=== PATIENT | female | born 1990 | race Two or more races ===

== ENCOUNTER → 2017-05-11 | Outpatient (REF) | payer OTHER | LOC: M SFHCLERA 12:46 | PROVIDERS: ATTEND Physician Assistant | DX: N76.0 Acute vaginitis (principal) ==

== ENCOUNTER → 2017-05-19 | Outpatient (REF) | payer OTHER | LOC: M SFHCLERA 17:02 | PROVIDERS: ATTEND Nurse Practitioner Family | DX: Z86.19 Personal history of other infectious and parasitic diseases (principal) ==

== ENCOUNTER 2017-10-29 21:10 | Emergency (ER) | payer OTHER ==
[2017-10-30] MEDS: diphenhydrAMINE INJ 50MG/ML VIAL (J1200) IV (00:11)
[2017-10-30] MEDS: METOCLOPRAMIDE INJ 10MG/2ML VIAL (J2765) IV (00:11)
[2017-10-30] MEDS: NS 1,000 ML IV (00:11)
[2017-10-30 00:16] LABS: BASO % 0.2 % (0.0-1.0); EOS % 0.2 % (0.0-3.0); HEMATOCRIT 38.7 % (36.0-47.0); HEMOGLOBIN 12.8 g/dl (12.0-16.0); IMMATURE GRANULOCYTE % 0.4 % (0-0); LYMPH # 1.9 10^3/uL (1.5-6.5); LYMPH % 19.4 % (24.0-44.0); MEAN CORPUSCULAR HEMOGLOBIN 27.6 pg (27.0-33.0); MEAN CORPUSCULAR HGB CONC 33.1 g/dl (32.0-36.5); MEAN CORPUSCULAR VOLUME 83.4 fl (80.0-96.0); MONO # 0.5 10^3/uL (0.0-0.8); MONO % 4.8 % (0.0-5.0); NEUTROPHILS # 7.5 10^3/uL (1.8-7.7); PLATELET COUNT, AUTOMATED 312 10^3/uL (150-450); RED BLOOD COUNT 4.64 10^6/uL (4.00-5.40); RED CELL DISTRIBUTION WIDTH 13.8 % (11.5-14.5)
[2017-10-30 00:56] LABS: ALBUMIN 3.7 GM/DL (3.2-5.2); ALBUMIN/GLOBULIN RATIO 0.86 (1.00-1.93); ALKALINE PHOSPHATASE 105 U/L (45-117); ALT/SGPT 15 U/L (12-78); ANION GAP 9 MEQ/L (8-16); AST/SGOT 9 U/L (7-37); BILIRUBIN,DIRECT 0.1 MG/DL (0.0-0.2); BILIRUBIN,TOTAL 0.4 MG/DL (0.2-1.0); BLOOD UREA NITROGEN 8 MG/DL (7-18); CALCIUM LEVEL 9.1 MG/DL (8.5-10.1); CARBON DIOXIDE LEVEL 25 MEQ/L (21-32); CHLORIDE LEVEL 104 MEQ/L (98-107); CREATININE FOR GFR 0.61 MG/DL (0.55-1.02); GLOMERULAR FILTRATION RATE > 60.0 (>60); GLUCOSE, FASTING 85 MG/DL (70-105); HCG, SERUM QUANTITATIVE 59613 MIU/ML; LIPASE 59 U/L (73-393); POTASSIUM SERUM 3.8 MEQ/L (3.5-5.1); SODIUM LEVEL 138 MEQ/L (136-145)
[2017-10-30 01:24] LABS: KETONE, URINE AUTO RFX 2+ mg/dL (NEGATIVE); LEUKOCYTE ESTERASE UR AUTO RFX 3+ (NEGATIVE); MUCUS, URINE RFX SMALL (NEGATIVE); NITRITE, URINE AUTO RFX NEGATIVE (NEGATIVE); RBC, URINE AUTO RFX 5 /HPF (0-3); SPECIFIC GRAVITY UR AUTO RFX 1.027 (1.002-1.035); SQUAM EPITHELIAL CELL UR AURFX 3 /HPF (0-6); WBC, URINE AUTO RFX 7 /HPF (0-3)
[2017-10-30] MEDS: NITROFURANTOIN (MACROBID) 100 MG CAP PO (01:34)
== END 2017-10-30 01:43 | disposition home or self-care (01) ==
LOC: M ED 10-30 01:43
DX: O21.9 Vomiting of pregnancy, unspecified (principal); Z3A.08 8 weeks gestation of pregnancy; O99.331 Smoking (tobacco) complicating pregnancy, first trimester; F17.210 Nicotine dependence, cigarettes, uncomplicated
CPT/HCPCS: J1200

== ENCOUNTER → 2018-04-07 | Outpatient (CLI) | payer MEDICAID ==
[2018-04-07 09:20] LABS: BASO % 0.2 % (0.0-1.0); EOS # 0.2 10^3/uL (0.0-0.50); EOS % 2.2 % (0.0-3.0); HEMOGLOBIN 11.2 g/dl (12.0-15.5); IMMATURE GRANULOCYTE % 0.4 % (0-3.0); LYMPH # 1.6 10^3/uL (1.5-6.5); LYMPH % 17.3 % (24.0-44.0); MEAN CORPUSCULAR HEMOGLOBIN 27.4 pg (27.0-33.0); MEAN CORPUSCULAR HGB CONC 32.9 g/dl (32.0-36.5); MEAN CORPUSCULAR VOLUME 83.1 fl (80.0-96.0); MONO # 0.5 10^3/uL (0.0-0.8); MONO % 5.2 % (0.0-5.0); NEUTROPHILS # 6.9 10^3/uL (1.8-7.7); NEUTROPHILS % 74.7 % (36.0-66.0); PLATELET COUNT, AUTOMATED 276 10^3/uL (150-450); RED BLOOD COUNT 4.09 10^6/uL (4.00-5.40); RED CELL DISTRIBUTION WIDTH 14.4 % (11.5-14.5); WHITE BLOOD COUNT 9.2 10^3/uL (4.0-10.0)
[2018-04-07 10:05] LABS: GLUCOSE, FASTING 95 MG/DL (LESS THAN 95)
[2018-04-07 10:50] LABS: 1 HR GLUCOSE 193 MG/DL (LESS THAN 180)
[2018-04-07 10:51] LABS: HIV 1&2 SCREEN CENTAUR NEGATIVE (NEGATIVE)
[2018-04-07 11:30] LABS: 2 HR GLUCOSE 161 MG/DL (LESS THAN 155)
[2018-04-07 11:55] LABS: 3 HR GLUCOSE 142 MG/DL (LESS THAN 140)
[2018-04-07 13:05] LABS: CHLAMYDIA DNA AMPLIFICATION NEGATIVE (NEGATIVE); GC DNA AMPLIFICATION NEGATIVE (NEGATIVE)
== END ==
LOC: M LAB 08:05
DX: Z34.83 Encounter for supervision of other normal pregnancy, third trimester (principal)
CPT/HCPCS: 82951

== ENCOUNTER → 2018-05-14 | Outpatient (REF) | payer MEDICAID | LOC: M LAB REF 12:53 | DX: Z34.83 Encounter for supervision of other normal pregnancy, third trimester (principal); Z3A.00 Weeks of gestation of pregnancy not specified ==

== ENCOUNTER 2018-06-02 06:09 | Inpatient (IN) | payer OTHER, MEDICAID ==
[2018-06-02] MEDS: LACTATED RINGER'S 1000 ML IV ×2 (07:47→11:57)
[2018-06-02 08:05] LABS: HEMATOCRIT 34.5 % (36.0-47.0); HEMOGLOBIN 11.1 g/dl (12.0-15.5); MEAN CORPUSCULAR HEMOGLOBIN 26.6 pg (27.0-33.0); MEAN CORPUSCULAR HGB CONC 32.2 g/dl (32.0-36.5); MEAN CORPUSCULAR VOLUME 82.5 fl (80.0-96.0); PLATELET COUNT, AUTOMATED 199 10^3/uL (150-450); RED BLOOD COUNT 4.18 10^6/uL (4.00-5.40); RED CELL DISTRIBUTION WIDTH 15.3 % (11.5-14.5); WHITE BLOOD COUNT 10.3 10^3/uL (4.0-10.0)
[2018-06-02] MEDS ORDERED: FENTANYL 2MCG/ML ROPIVACAINE 0.2% IN 0.9% NACL 200ML IVBAG As Ordered (08:06)
[2018-06-02] MEDS: PENICILLIN G POTASSIUM IV 5 MU in D5W MINI-BAG PLUS 100 ML IV (08:10)
[2018-06-02] MEDS: LR 1,000 ML IV ×3 (08:10→13:09)
[2018-06-02] MEDS: OXYTOCIN DRIP 30 UNITS in APPROPRIATE DILUENT 1 EA IV ×2 (10:06→19:00)
[2018-06-02] MEDS ORDERED: NALOXONE INJ 0.4 MG/1 ML VIAL (J2310) IV (10:15)
[2018-06-02] MEDS ORDERED: EPIDURAL COMMENT XX (10:15)
[2018-06-02] MEDS ORDERED: EPIDURAL/PCA KEYS XX (10:15)
[2018-06-02] MEDS ORDERED: REFRIGERATOR IV KEYS XX (10:15)
[2018-06-02] MEDS ORDERED: FENTANYL/ROPIVACAINE/NACL BAG 200 ML EPIDURAL (10:15)
[2018-06-02] MEDS ORDERED: diphenhydrAMINE INJ 50MG/ML VIAL (J1200) IV (10:15)
[2018-06-02] MEDS ORDERED: ONDANSETRON 4MG/2ML VIAL (J2405) IV ×2 (10:15→15:30)
[2018-06-02] MEDS: ePHEDrine SULFATE 25 MG/5 ML(5MG/ML) SYRINGE IV ×3 (11:54→12:06)
[2018-06-02] MEDS: PENICILLIN G POTASSIUM IV 2.5 MU in APPROPRIATE DILUENT 1 EA IV (12:36)
[2018-06-02] MEDS ORDERED: DIBUCAINE 1% OINTMENT 30GM TOP (15:30)
[2018-06-02] MEDS ORDERED: MEASLES,MUMPS,RUBELLA VACCINE INJ (MMR-II) (90707) SC (15:30)
[2018-06-02] MEDS ORDERED: RHOGAM 300 MCG (1500 IU) INJ (J2790) IM (15:30)
[2018-06-02] MEDS ORDERED: DOCUSATE SODIUM 100 MG CAP PO (15:30)
[2018-06-02] MEDS ORDERED: PROMETHAZINE 25 MG TAB PO (15:30)
[2018-06-02] MEDS ORDERED: LR 1,000 ML IV (15:30)
[2018-06-02] MEDS: IBUPROFEN 800 MG TAB PO (20:33)
[2018-06-03] MEDS: PRENATAL VITAMINS CHEWABLE TABLET PO (09:26)
[2018-06-03] MEDS: IBUPROFEN 800 MG TAB PO (09:30)
[2018-06-03] MEDS: ACETAMINOPHEN 500 MG TAB PO (20:49)
[2018-06-04] MEDS: IBUPROFEN 800 MG TAB PO ×2 (01:02→08:21)
[2018-06-04] MEDS: PRENATAL VITAMINS CHEWABLE TABLET PO (08:21)
== END 2018-06-04 11:45 | disposition home or self-care (01) | DRG 775 ==
LOC: M LDI 06:09 → M OBS 17:47
PROVIDERS: Obstetrics & Gynecology
PROC: 10E0XZZ Delivery of Products of Conception, External Approach (ICD-10-PCS; principal; 2018-06-02)
PROC: 0HQ9XZZ Repair Perineum Skin, External Approach (ICD-10-PCS; 2018-06-02)
DX: O24.429 Gestational diabetes mellitus in childbirth, unspecified control (principal); Z37.0 Single live birth; Z3A.39 39 weeks gestation of pregnancy; O99.824 Streptococcus B carrier state complicating childbirth; Z72.0 Tobacco use; Z91.013 Allergy to seafood; O70.0 First degree perineal laceration during delivery

== ENCOUNTER → 2018-07-26 | Outpatient (REF) | payer OTHER, MEDICAID ==
[2018-07-26 13:03] LABS: AMPHETAMINES URINE REFLEX NEGATIVE (NEGATIVE); BARBITURATES URINE REFLEX NEGATIVE (NEGATIVE); BENZODIAZEPINES URINE REFLEX NEGATIVE (NEGATIVE); CANNABINOIDS URINE REFLEX NEGATIVE (NEGATIVE); COCAINE METABOLITE URINE REFLE NEGATIVE (NEGATIVE); METHADONE URINE REFLEX NEGATIVE (NEGATIVE); OPIATES URINE REFLEX NEGATIVE (NEGATIVE); PHENCYCLIDINE URINE REFLEX NEGATIVE (NEGATIVE)
== END ==
LOC: M LAB REF 11:20
DX: Z00.00 Encounter for general adult medical examination without abnormal findings (principal)
CPT/HCPCS: 80307

== ENCOUNTER 2018-09-26 00:58 | Emergency (ER) | payer MEDICAID, OTHER ==
[2018-09-26 01:53] LABS: BASO % 0.4 % (0.0-1.0); EOS # 0.4 10^3/uL (0.0-0.50); HEMATOCRIT 37.2 % (36.0-47.0); IMMATURE GRANULOCYTE % 0.1 % (0-3.0); MEAN CORPUSCULAR HEMOGLOBIN 26.3 pg (27.0-33.0); MEAN CORPUSCULAR HGB CONC 32.3 g/dl (32.0-36.5); MEAN CORPUSCULAR VOLUME 81.4 fl (80.0-96.0); MONO # 0.6 10^3/uL (0.0-0.8); MONO % 7.4 % (0.0-5.0); NEUTROPHILS # 4.2 10^3/uL (1.8-7.7); NEUTROPHILS % 51.1 % (36.0-66.0); RED BLOOD COUNT 4.57 10^6/uL (4.00-5.40); RED CELL DISTRIBUTION WIDTH 14.1 % (11.5-14.5); WHITE BLOOD COUNT 8.3 10^3/uL (4.0-10.0)
[2018-09-26 01:57] LABS: KETONE, URINE AUTO RFX NEGATIVE (NEGATIVE); LEUKOCYTE ESTERASE UR AUTO RFX NEGATIVE (NEGATIVE); NITRITE, URINE AUTO RFX NEGATIVE (NEGATIVE); RBC, URINE AUTO RFX 0 /HPF (0-3); SPECIFIC GRAVITY UR AUTO RFX 1.018 (1.002-1.035); SQUAM EPITHELIAL CELL UR AURFX 0 /HPF (0-6); WBC, URINE AUTO RFX 0 /HPF (0-3)
[2018-09-26] MEDS: KETOROLAC 30 MG/ML VIAL (J1885) IV (02:00)
[2018-09-26 02:04] LABS: POS COUNT POS FLAG
[2018-09-26 02:23] LABS: ALBUMIN 3.1 GM/DL (3.2-5.2); ALBUMIN/GLOBULIN RATIO 0.72 (1.00-1.93); ALKALINE PHOSPHATASE 123 U/L (45-117); ALT/SGPT 26 U/L (12-78); ANION GAP 9 MEQ/L (8-16); AST/SGOT 20 U/L (7-37); BILIRUBIN,DIRECT < 0.1 MG/DL (0.0-0.2); BILIRUBIN,TOTAL 0.2 MG/DL (0.2-1.0); BLOOD UREA NITROGEN 14 MG/DL (7-18); CALCIUM LEVEL 8.9 MG/DL (8.5-10.1); CARBON DIOXIDE LEVEL 27 MEQ/L (21-32); CHLORIDE LEVEL 105 MEQ/L (98-107); CREATININE FOR GFR 0.65 MG/DL (0.55-1.30); GLOMERULAR FILTRATION RATE > 60.0 (>60); GLUCOSE, FASTING 106 MG/DL (70-100); LIPASE 91 U/L (73-393); POTASSIUM SERUM 4.8 MEQ/L (3.5-5.1); SODIUM LEVEL 141 MEQ/L (136-145); TOTAL PROTEIN 7.4 GM/DL (6.4-8.2)
[2018-09-26] MEDS: AZITHROMYCIN 250 MG TAB PO (04:24)
[2018-09-26] MEDS: cefTRIAXone SOD 1 GM in D5W MINI-BAG PLUS 50 ML IV (04:24)
== END 2018-09-26 05:46 | disposition home or self-care (01) ==
LOC: M ED 00:58
DX: J18.9 Pneumonia, unspecified organism (principal); Z77.098 Contact with and (suspected) exposure to other hazardous, chiefly nonmedicinal, chemicals
CPT/HCPCS: J0696

== ENCOUNTER → 2019-03-04 | Outpatient (REF) | payer MEDICAID ==
[~2019-03-04] MED LIST: ACET500T15 PO; AZIT-12 PO; COLA100C5 PO; MACR100C43 PO; MOTR200T44 PO; PRENTAB9 PO; REGL10TA6 PO
[2019-03-09 14:10] LABS: HPV HYBRID CAPTURE II Negative (Negative)
== END ==
LOC: M LAB REF 17:47
PROVIDERS: ATTEND Obstetrics & Gynecology
DX: Z12.4 Encounter for screening for malignant neoplasm of cervix (principal)

== ENCOUNTER → 2020-03-21 | Outpatient (CLI) | payer MEDICAID ==
--- NOTE | 2020-03-21 15:11 | REP ---
OB ULTRASOUND: Real-time sonographic evaluation of the gravid uterus performed. There is a single living intrauterine gestation with an estimated gestational age of 13 weeks based on a crown-rump length of 6 to 7 mm, EDC 09/26/2020. heart rate 160 beats per minute. Cervix is closed and measures 3.6 cm in length. There is no subchorionic hemorrhage. Cystic structure of the right ovary probably represents a corpus luteum. It measures les than 1 cm in diameter. Left ovary is unremarkable.
== END ==
LOC: M WHC 11:44
PROVIDERS: ATTEND Advanced Practice Midwife
DX: Z36.89 Encounter for other specified antenatal screening (principal); Z3A.13 13 weeks gestation of pregnancy

== ENCOUNTER → 2020-04-11 | Outpatient (CLI) | payer MEDICAID ==
[~2020-04-11] MED LIST changes: +ACET325C5 PO; +OMEP10CASR PO
[2020-04-11 09:47] LABS: HEMOGLOBIN 11.6 g/dl (12.0-15.5); MEAN CORPUSCULAR HEMOGLOBIN 28.2 pg (27.0-33.0); MEAN CORPUSCULAR HGB CONC 33.1 g/dl (32.0-36.5); MEAN CORPUSCULAR VOLUME 85.2 fl (80.0-96.0); PLATELET COUNT, AUTOMATED 232 10^3/uL (150-450); RED BLOOD COUNT 4.11 10^6/uL (4.00-5.40); WHITE BLOOD COUNT 9.1 10^3/uL (4.0-10.0)
[2020-04-11 10:06] LABS: HEMOGLOBIN A1c 5.2 %
[2020-04-11 10:15] LABS: GLUCOSE CHALLENGE TEST 1 HOUR 155 MG/DL (LESS THAN 140)
[2020-04-11 10:41] LABS: HEPATITIS B SURFACE ANTIGEN NEGATIVE (NEGATIVE)
[2020-04-11 11:09] LABS: HEPATITIS C VIRUS ABY INDEX 0.2 INDEX (<0.8); HIV 1&2 SCREEN CENTAUR NEGATIVE (NEGATIVE)
[2020-04-11 11:45] LABS: CHLAMYDIA DNA AMPLIFICATION POSITIVE (NEGATIVE); GC DNA AMPLIFICATION NEGATIVE (NEGATIVE)
== END ==
LOC: M LAB 07:21
PROVIDERS: ATTEND Advanced Practice Midwife
DX: O99.211 Obesity complicating pregnancy, first trimester (principal)

== ENCOUNTER → 2020-05-14 | Outpatient (CLI) | payer MEDICAID, OTHER ==
--- NOTE | 2020-05-14 16:43 | REP ---
Clinical: Anatomical evaluation. Comparison: 03/21/2020 . Findings: Examination demonstrates a single live intrauterine in transverse (head to maternal left) presentation. motion is identified by technologist. Placenta is noted anterior and grade zero without evidence for placenta previa or abruption. Amniotic fluid volume is normal. Cervix measures 3.1 cm in length and appears closed. No evidence for nuchal cord. Gestational age by LMP 20 weeks 6 days with LUKASZ 09/25/2020 . Gestational age by current measurements 20 weeks 0 days with LUKASZ 10/01/2020 . FHR equals 142 beats per minute. BPD 4.4 cm 19 weeks 3 days HC 17.8 cm 20 weeks 2 days AC 14.9 cm 20 weeks 1 day FL 3.3 cm 20 weeks 1 day HL 3.1 20 weeks 3 days HC/AC ratio 1.20 Estimated weight 334 grams ( 22nd percentile). Anatomical assessment demonstrates normal structures including cranium, choroid plexus, cavum, cerebellum/posterior fossa, diaphragm, stomach, cord insertion/three-vessel cord, kidneys/bladder, spine, and extremities. Impression: 1. Single live intrauterine in transverse lie demonstrating appropriate interval growth. 2. Limited evaluation of the facial features and heart/cardiac ventricular outflow tracts. Remainder of the anatomical assessment is complete and normal. Electronically Signed by Eligio Rodriguez MD 05/14/2020 04:35 P
== END ==
LOC: M WHC 15:06
PROVIDERS: ATTEND Advanced Practice Midwife
DX: O99.212 Obesity complicating pregnancy, second trimester (principal); E66.9 Obesity, unspecified; Z3A.20 20 weeks gestation of pregnancy

== ENCOUNTER → 2020-08-24 | Outpatient (CLI) | payer MEDICAID, OTHER ==
--- NOTE | 2020-08-24 18:03 | REP ---
INDICATION: F/U ANATOMY. Gestational diabetes mellitus. COMPARISON: May 14, 2020. TECHNIQUE: Transabdominal obstetric sonography. FINDINGS: Scanning through the gravid uterus demonstrates a viable single intrauterine gestation in cephalic lie. motion is observed and heart rate is recorded at 140 beats per minute. A anterior placenta is seen, grade 2, without evidence of placenta previa. Amniotic fluid is subjectively normal. Closed cervical length could not be measured due to low head position. Amniotic fluid is subjectively all ago hydramnios. Exam quality is inhibited by patient body habitus, position and low fluid.. No extrauterine abnormality is observed. Facial profile, nose and lips were visualized and appear normal. We were not able to achieve a optimal four-chamber heart view. The left ventricular outflow tract view and right ventricular outflow tract views were achieved and are felt to be unremarkable.. Biometry chart: BPD 8.4 cm, 34 weeks 0 days Head circumference 32.4 cm, 36 weeks 4 days Abdominal circumference 30.7 cm, 34 weeks 4 days Femur length 6.6 cm, 34 weeks 0 days HC/AC ratio normal 1.05 Cephalic index normal 0.71 Estimated weight 2465 g, 5 lb 6 oz, 40th percentile for 34 weeks 6 days AUGUSTINA low 7.4 cm (7.9-24.9 cm). IMPRESSION: Viable single intrauterine gestation at 34 weeks 6 days by today's composite sonographic criteria. LUKASZ by today's sonography September 29, 2020. There is evidence of mild oligohydramnios. Four-chamber heart view still less than optimally achieved. <Electronically signed by Elton Corley > 08/24/20 1800
== END ==
LOC: M WHC 15:31
PROVIDERS: ATTEND Obstetrics & Gynecology
DX: O24.420 Gestational diabetes mellitus in childbirth, diet controlled (principal); Z3A.34 34 weeks gestation of pregnancy

== ENCOUNTER → 2020-08-27 | Outpatient (REF) | payer MEDICAID, OTHER ==
[~2020-08-27] MED LIST changes: -ACET325C5 PO
[2020-08-27 20:21] LABS: HEMOGLOBIN A1c 5.4 %
== END ==
LOC: M PLALAB 11:22
PROVIDERS: ATTEND Obstetrics & Gynecology
DX: O99.213 Obesity complicating pregnancy, third trimester (principal); E66.9 Obesity, unspecified; Z3A.00 Weeks of gestation of pregnancy not specified

== ENCOUNTER 2020-08-28 08:39 | Outpatient (CLI) | payer MEDICAID, OTHER ==
[~2020-08-28] VITALS: Ht 152.4 cm; Wt 107.3 kg
[~2020-08-28 08:39] MED LIST changes: -OMEP10CASR PO
[2020-08-28 09:02] VITALS: BP 82/50
[2020-08-28 09:03] VITALS: BP 93/44
[2020-08-28] MEDS ORDERED: BETAMETHASONE SOLUSPAN 6MG/ML 5ML VIAL (J0702 PER 3MG) IM SCH (10:00)
--- NOTE | 2020-08-28 10:29 | REP ---
INDICATION: oligo. COMPARISON: 08/24/2020. TECHNIQUE: Real-time sonographic evaluation of gravid uterus performed. FINDINGS: There is a single living intrauterine gestation. Estimated gestational age is reportedly 35 weeks 3 days, EDC 09/29/2020. position cephalic. Placenta anterior and grade 1 with no previa. heart rate 128 beats per minute. Amniotic fluid appears low. AUGUSTINA 5.1 below normal range of 7.8-24.9. Biophysical profile score 8/8. SD ratio umbilical artery 2.69, normal 1.67-3.56. RI 0.63, normal range 0.46-0.72. IMPRESSION: Biophysical profile score 8/8. Oligohydramnios. <Electronically signed by Nato Mccarty > 08/28/20 0764
[2020-08-28 11:10] VITALS: BP 89/55
--- NOTE | 2020-08-28 20:24 | IPNPDOC ---
Text Note Date of Service The patient was seen on 08/28/20. NOTE 30yo at 36w0d present for evaluation for oligo. Patient was seen this morning and was noted to have brachycardia and oligo on TAUS. reports active movement. No vaginal bleeding, LOF or ctx O: vss, AF Cat 1 tracing gen: well appearing abd: gravid,nttp TAUS: 88 BPP 5.1cm AUGUSTINA A/P: 30y t 36wks with oligohydramnios - currently stable -gestational DM Betamethasone 12mg now and 24hrs IOL by 37wks Labor precautions and FKCs VS,Fishbone, I+O VS, Fishbone, I+O Vital Signs Date Time Temp Pulse Resp B/P (MAP) Pulse Ox O2 Delivery O2 Flow Rate FiO2 08/28/20 11:10 97.2 78 16 89/55 (66) 08/28/20 09:02 99 AISSATOU GIL MD. Aug 28, 2020 20:24
[2020-08-29] MEDS ORDERED: PRENTAB9 PO (10:16)
[2020-08-29] MEDS ORDERED: OMEP10CASR PO (10:16)
== END 2020-08-28 11:24 | disposition home or self-care (01) ==
LOC: M LDO 08:39
PROVIDERS: ATTEND Obstetrics & Gynecology
DX: O41.03X0 Oligohydramnios, third trimester, not applicable or unspecified (principal); Z3A.36 36 weeks gestation of pregnancy
CPT/HCPCS: 59025; 76815; 76819; 76820; 96372; J0702

== ENCOUNTER → 2020-08-28 | Outpatient (REF) | payer MEDICAID, OTHER | LOC: M SFHCWAGY 10:07 | PROVIDERS: ATTEND Obstetrics & Gynecology | DX: Z34.93 Encounter for supervision of normal pregnancy, unspecified, third trimester (principal); Z3A.36 36 weeks gestation of pregnancy ==

== ENCOUNTER 2020-08-29 10:02 | Outpatient (CLI) | payer OTHER ==
[~2020-08-29] VITALS: Ht 152.4 cm; Wt 103.4 kg
[2020-08-29] MEDS ORDERED: BETAMETHASONE SOLUSPAN 6MG/ML 5ML VIAL (J0702 PER 3MG) IM ONE (10:15)
[2020-08-29] MEDS ORDERED: PRENTAB9 PO (10:16)
[2020-08-29] MEDS ORDERED: OMEP10CASR PO (10:16)
[2020-08-29 10:17] VITALS: BP 118/68
[2020-08-29 10:43] VITALS: BP 100/55
--- NOTE | 2020-08-29 16:06 | IPNPDOC ---
Text Note Date of Service The patient was seen on 08/29/20. NOTE Leah is a 30-year-old female who is 36.1 weeks gestation and presents to to L&D for her second dose of betamethasone for gestational diabetes with oligohydramnios. She denies any complaints today. Letter given to be out of work. Induction of labor scheduled for next Thursday. FHR 120, moderate variability, positive accelerations, no decelerations. Contractions: none. Injection given. Discharged to home after injection and reactive strip. Reviewed access to care, kick count, labor and labor signs, and danger signs to report. Bethamethasone is complete. VS,Fishbone, I+O VS, Fishbone, I+O Vital Signs Date Time Temp Pulse Resp B/P (MAP) Pulse Ox O2 Delivery O2 Flow Rate FiO2 08/29/20 10:43 98.1 93 18 100/55 (70) 08/29/20 10:17 98 Room Air SYLVIE CONN CNM Aug 29, 2020 16:06
== END 2020-08-29 10:49 | disposition home or self-care (01) ==
LOC: M LDO 10:02
PROVIDERS: ATTEND Advanced Practice Midwife
DX: O41.03X0 Oligohydramnios, third trimester, not applicable or unspecified (principal); O24.419 Gestational diabetes mellitus in pregnancy, unspecified control; Z3A.36 36 weeks gestation of pregnancy
CPT/HCPCS: 96372; J0702

== ENCOUNTER 2020-09-04 13:19 | Inpatient (IN) | payer OTHER, MEDICAID ==
[2020-09-04] VITALS (10 sets, daily range): BP systolic 98–118; BP diastolic 51–69
[~2020-09-04] VITALS: Ht 152.4 cm; Wt 104.6 kg
[~2020-09-04 13:19] MED LIST changes: +OMEP10CASR PO
[2020-09-04] MEDS ORDERED: ACET325C5 PO (13:46)
[2020-09-04] MEDS: miSOPROStol 50 MCG 1/2 TAB (S0191) SL SCH ×2 (17:17→21:30)
--- NOTE | 2020-09-04 17:31 | HPEPDOC ---
Obstetrical History & Physical General Date of Admission Sep 04, 2020 at 13:19 History of Present Illness 30 yo at 37 0/7 weeks gestation by LMP c/w 13 week ultrasound (EDC= 0) presents for labor induction. The indication for induction < 39 weeks is persistent oligohydramnios. She was exposed to someone with COVID. She has no symptoms. She has no contractions or vaginal bleeding. Information Provided By: Patient Age: 30 : 4 Term: 3 Pre-term: 0 Abortions: 0 Livin Care Care: Good Care Dating Final EDC: Sep 25, 2020 Final EDC by: LMP, 2nd trimester (US) EGA at Admission: 37 Antepartum Course Diagnos(e)s Oligohydramnios Past Medical History Past Medical History Medical History Medical history: None, former smoker Surgical history: Hernia repair x 2 OB hx: Term x 3 Surgical History: Hernia repair Family History Significant Family History: No pertinent family hx Social History Marital Status: Single Family situation: Spouse/partner home * Smoker: former Smoker Alcohol: Denies Allergies Coded Allergies: Dust (Verified Allergy, Mild, 09/04/20) shellfish derived (Verified Allergy, Mild, unknown, 09/04/20) had a scratch test Cat Dander (Verified Adverse Reaction, Mild, stuffy nose, 09/04/20) Medications Scheduled Omeprazole (Omeprazole) 10 Mg Capsule.dr, 1 CAP PO DAILY No.137/Iron/Folic Acd ( Vitamin Tablet) 1 Each Tablet, 1 TAB PO DAILY Miscellaneous Medications Acetaminophen (Tylenol) 325 Mg Capsule, 500 MG PO Physical Examination Physical Examination GENERAL: Alert and oriented times three. BREAST: . ABDOMEN: Gravid and non-tender to touch. FETUS: Is vertex (VTX) by sterile vaginal examination (SVE), fetus is vertex (VTX) by Homer. HEART RATE: Regular rate and rhythm. LUNGS: Clear to auscultation (CTA). EXTREMITIES: No edema. No clonus. Deep tendon reflexes (DTRs) + . Laboratory Data 24H LABS Laboratory Tests 2 09/04/20 13:38: Serology Scanned Report Hepatitis B Testing 09/04/20 15:49: Coronavirus (COVID-19)(PCR) NEGATIVE 09/04/20 16:40: CBC/BMP Pertinent Laboratoy Data Group B Streptococcus: Negative Vaginal Examination Dilation: 1cm Effacement: 50% Station: -2 Cervical Consistency: Medium Cervical Position: Posterior Presentation: Cephalic presentation Assessment Variability: Moderate Accelerations: Positive Decelerations: None Tocometer Frequency: irregular Assessment/Plan Assessment Pt is a 30-year-old (G)4 para (P)3-0-0-3 at 37+0 weeks by LMP c/w 13- week ultrasound. Presents to Labor and Delivery (L&D) for induction due to oligohydramnios. Plan Admit and orient. Group B Streptococcus (GBS) negative. Labs and intravenous (IV) per unit protocol. Counseled on Misoprostol and induction of labor (IOL). Anticipate [normal spontaneous delivery ()]. C-S as appropriate. JONAH ROBERTS MD Sep 04, 2020 17:31
[2020-09-04 21:09] LABS: HEMATOCRIT 34.2 % (36.0-47.0); HEMOGLOBIN 10.7 g/dl (12.0-15.5); MEAN CORPUSCULAR HEMOGLOBIN 26.4 pg (27.0-33.0); MEAN CORPUSCULAR HGB CONC 31.3 g/dl (32.0-36.5); MEAN CORPUSCULAR VOLUME 84.2 fl (80.0-96.0); PLATELET COUNT, AUTOMATED 236 10^3/uL (150-450); RED BLOOD COUNT 4.06 10^6/uL (4.00-5.40); WHITE BLOOD COUNT 8.3 10^3/uL (4.0-10.0)
[2020-09-05] VITALS (46 sets, daily range): BP systolic 89–146; BP diastolic 39–90
[2020-09-05] MEDS ORDERED: ACETAMINOPHEN 500 MG TAB PO ONE (00:30)
[2020-09-05] MEDS: miSOPROStol 50 MCG 1/2 TAB (S0191) SL SCH ×2 (02:21→06:34)
[2020-09-05] MEDS ORDERED: OXYTOCIN DRIP 30 UNITS in IV 1 EA IV SCH ×2 (10:45→21:13)
[2020-09-05] MEDS: LR 1,000 ML IV SCH ×3 (10:53→17:29)
[2020-09-05] MEDS ORDERED: FENTANYL 2MCG/ML ROPIVACAINE 0.2% IN 0.9% NACL 100ML IVBAG As Ordered ONE (15:39)
[2020-09-05] MEDS ORDERED: LACTATED RINGER'S 1000 ML IV PRN (17:15)
[2020-09-05] MEDS ORDERED: ONDANSETRON 4MG/2ML VIAL IV PRN (17:15)
[2020-09-05] MEDS ORDERED: NALOXONE INJ 0.4MG/1ML VIAL (J2310 PER 1MG) IV PRN (17:15)
[2020-09-05] MEDS ORDERED: diphenhydrAMINE 50MG/ML VIAL (J1200) IV PRN (17:15)
[2020-09-05] MEDS ORDERED: EPIDURAL COMMENT XX SCH (17:15)
[2020-09-05] MEDS ORDERED: REFRIGERATOR IV KEYS XX PRN (17:15)
[2020-09-05] MEDS ORDERED: FENTANYL/ROPIVACAINE/NACL BAG 100 ML EPIDURAL SCH (17:15)
[2020-09-05] MEDS ORDERED: ePHEDrine SULFATE 25 MG/5 ML(5MG/ML) SYRINGE IV PRN (17:15)
[2020-09-05] MEDS ORDERED: EPIDURAL/PCA KEYS XX PRN (17:15)
[2020-09-05] MEDS ORDERED: METHYLERGONOVINE MALEATE 0.2 MG/ML VIAL (J2210) IM STA (20:53)
[2020-09-05] MEDS ORDERED: DIBUCAINE 1% OINTMENT 30GM TOP PRN (21:15)
[2020-09-05] MEDS ORDERED: DOCUSATE SODIUM 100 MG CAP PO PRN (21:15)
[2020-09-05] MEDS ORDERED: IBUPROFEN 800 MG TAB PO PRN (21:15)
[2020-09-05] MEDS ORDERED: METHYLERGONOVINE MALEATE 0.2 MG TAB PO PRN (21:15)
[2020-09-05] MEDS ORDERED: ACETAMINOPHEN TAB 650MG DOSE (2X325MG) PO PRN (21:15)
[2020-09-05] MEDS ORDERED: RHOGAM 300 MCG (1500 IU) INJ (J2790) IM SCH (21:15)
[2020-09-05] MEDS ORDERED: MEASLES,MUMPS,RUBELLA VACCINE INJ (MMR-II) (90707) SC SCH (21:15)
[2020-09-05] MEDS: ACETAMINOPHEN 500 MG TAB PO PRN (21:28)
[2020-09-06 06:00] VITALS: BP 101/56
[2020-09-06] MEDS: PRENATAL VITAMINS CHEWABLE TABLET PO SCH (08:44)
[2020-09-06] MEDS ORDERED: INFLUENZA QUADRIVALENT PF VACCINE 0.5ML SYRINGE IM ONE (09:00)
[2020-09-06] MEDS ORDERED: SLF 3 ML SYR IV PRN (11:30)
[2020-09-06] MEDS: SLF 3 ML SYR IV SCH ×2 (14:00→22:00)
[2020-09-06] MEDS: IBUPROFEN 600MG TAB PO PRN (17:08)
[2020-09-06 18:00] VITALS: BP 108/56
[2020-09-06] MEDS: ACETAMINOPHEN 500 MG TAB PO PRN (20:45)
[2020-09-07 06:00] VITALS: BP 114/63
--- NOTE | 2020-09-07 08:19 | IPNPDOC ---
Progress Note Date of Service: Sep 07, 2020 Progress Note SUBJECT: Status post . She has been ambulating, voiding spontaneously without issue and tolerating regular diet. Lochia decreasing/minimal. Patient is ambulating well. OBJECTIVE: VITAL SIGNS: Within normal limits, afebrile. Alert and oriented times three. Abdomen: Fundus firm at U-2. Soft, NTTP. ASSESSMENT: Status post uncomplicated spontaneous vaginal delivery. Vitals within normal limits, afebrile, hemodynamically stable with no evidence of infection. PLAN: Discharge to home today. Tylenol and Motrin for pain. Routine instructions/precautions reviewed. Routine PP visit in 6 weeks in clinic. VS, I&O, 24H, Fishbone Vital Signs/I&O Vital Signs Date Time Temp Pulse Resp B/P (MAP) Pulse Ox O2 Delivery O2 Flow Rate FiO2 09/07/20 06:00 98.0 85 18 114/63 (80) 09/06/20 18:00 97 Room Air BENITA BAIRD DO Sep 07, 2020 08:19
[2020-09-07] MEDS: PRENATAL VITAMINS CHEWABLE TABLET PO SCH (08:24)
[2020-09-07] MEDS: IBUPROFEN 600MG TAB PO PRN (08:25)
== END 2020-09-07 12:02 | disposition home or self-care (01) | DRG 560 ==
LOC: M LDI 13:19 → M OBS 09-05 22:45
PROVIDERS: ADMIT Specialist; ATTEND Specialist
PROC: 3E033VJ Introduction of Other Hormone into Peripheral Vein, Percutaneous Approach (ICD-10-PCS; 2020-09-04)
PROC: 3E0DXGC Introduction of Other Therapeutic Substance into Mouth and Pharynx, External Approach (ICD-10-PCS; 2020-09-04)
PROC: 10E0XZZ Delivery of Products of Conception, External Approach (ICD-10-PCS; principal; 2020-09-05)
DX: O41.03X0 Oligohydramnios, third trimester, not applicable or unspecified (principal); O24.419 Gestational diabetes mellitus in pregnancy, unspecified control; Z37.0 Single live birth; Z3A.37 37 weeks gestation of pregnancy; Z87.891 Personal history of nicotine dependence; Z91.013 Allergy to seafood

== ENCOUNTER 2022-07-10 04:53 | Day surgery (SDC) | payer MEDICAID, OTHER ==
[~2022-07-10] VITALS: Ht 154.9 cm; Wt 100.0 kg
[~2022-07-10 04:53] MED LIST changes: +ACET325C5 PO
[2022-07-10 07:47] LABS: BASO % 0.3 % (0.0-1.0); EOS # 0.1 10^3/uL (0.0-0.5); EOS % 0.6 % (0.0-3.0); HEMATOCRIT 38.9 % (36.0-47.0); HEMOGLOBIN 12.5 g/dl (12.0-15.5); LYMPH # 1.7 10^3/uL (1.5-5.0); LYMPH % 19.4 % (24.0-44.0); MEAN CORPUSCULAR HEMOGLOBIN 28.3 pg (27.0-33.0); MEAN CORPUSCULAR HGB CONC 32.1 g/dl (32.0-36.5); MEAN CORPUSCULAR VOLUME 88.2 fl (80.0-96.0); MONO # 0.4 10^3/uL (0.0-0.8); MONO % 4.4 % (2.0-8.0); NEUTROPHILS # 6.5 10^3/uL (1.5-8.5); RED BLOOD COUNT 4.41 10^6/uL (4.00-5.40); WHITE BLOOD COUNT 8.7 10^3/uL (4.0-10.0)
[2022-07-10] MEDS ORDERED: ACETAMINOPHEN 500 MG TAB PO ONE (08:40)
[2022-07-10] MEDS ORDERED: HYDR-3713 PO (11:40)
[2022-07-10] MEDS ORDERED: IBUP-1022 PO (11:40)
[2022-07-10] MEDS ORDERED: ONDANSETRON 4MG 2ML VIAL IV ONE (12:25)
[2022-07-10] MEDS ORDERED: NS 1,000 ML IV ONE (12:25)
[2022-07-10 13:51] LABS: BASO % 0.1 % (0.0-1.0); HEMATOCRIT 33.8 % (36.0-47.0); HEMOGLOBIN 11.1 g/dl (12.0-15.5); LYMPH # 1.3 10^3/uL (1.5-5.0); LYMPH % 8.8 % (24.0-44.0); MEAN CORPUSCULAR HEMOGLOBIN 28.5 pg (27.0-33.0); MEAN CORPUSCULAR HGB CONC 32.8 g/dl (32.0-36.5); MEAN CORPUSCULAR VOLUME 86.9 fl (80.0-96.0); MONO # 0.4 10^3/uL (0.0-0.8); MONO % 2.4 % (2.0-8.0); NEUTROPHILS # 13.4 10^3/uL (1.5-8.5); NEUTROPHILS % 88.1 % (36.0-66.0); PLATELET COUNT, AUTOMATED 325 10^3/uL (150-450); RED BLOOD COUNT 3.89 10^6/uL (4.00-5.40); WHITE BLOOD COUNT 15.2 10^3/uL (4.0-10.0)
[2022-07-10 16:25] LABS: RSV AMPLIFICATION NEGATIVE (NEGATIVE)
[2022-07-10] MEDS ORDERED: MIDAZOLAM INJ 2MG/2ML VIAL (J2250 PER 1MG) As Ordered ONE (17:09)
[2022-07-10] MEDS ORDERED: fentaNYL 100 MCG/2 ML INJECTION As Ordered ONE (17:09)
[2022-07-10] MEDS ORDERED: KETOROLAC 60MG 2ML VIAL As Ordered ONE (17:10)
[2022-07-10] MEDS ORDERED: LIDOCAINE 2% 100MG/5ML SDV (FOR ANES.) As Ordered ONE (17:10)
[2022-07-10] MEDS ORDERED: ONDANSETRON 4MG 2ML VIAL As Ordered ONE (17:10)
[2022-07-10] MEDS ORDERED: propofoL 200 MG/20 ML VIAL As Ordered ONE (17:10)
[2022-07-10] MEDS ORDERED: METOCLOPRAMIDE INJ 10MG/2ML VIAL (J2765 PER 1) As Ordered ONE (17:10)
[2022-07-10] MEDS ORDERED: dexameTHASONE 4 MG/ML 1ML VIAL (J1100 PER 1MG) As Ordered ONE (17:10)
[2022-07-10] MEDS ORDERED: ACETAMINOPHEN 1000MG 100ML IV BAG As Ordered ONE (17:15)
[2022-07-10] MEDS ORDERED: PHENYLephrine 500MCG 5ML (100MCG/ML) SYRINGE As Ordered ONE (17:50)
[2022-07-10] MEDS ORDERED: MORPHINE 2 MG/ML 1ML VIAL IV PRN (18:10)
[2022-07-10] MEDS ORDERED: ONDANSETRON 4MG 2ML VIAL IV PRN (18:10)
[2022-07-10] MEDS ORDERED: oxyCODONE 5MG TAB PO PRN (18:10)
[2022-07-10] MEDS ORDERED: fentaNYL 100 MCG/2 ML INJECTION IV PRN (18:10)
[2022-07-10] MEDS ORDERED: LR 1,000 ML IV SCH (18:10)
[2022-07-10 19:50] VITALS: BP 125/93
== END 2022-07-10 19:52 | disposition home or self-care (01) ==
LOC: M ED 04:53 → M SDC 15:47 → M ED 19:52
PROVIDERS: ATTEND Specialist
DX: O02.1 Missed abortion (principal); Z91.013 Allergy to seafood
CPT/HCPCS: 59820; 76801; 84702; 85025; 86850; 86900; 86901; 87631; 88305; 96374; 96375; 99285; J0131; J1100; J1885; J2250; J2370; J2405; J2765; J3010

== ENCOUNTER → 2023-03-09 | Outpatient (CLI) | payer MEDICAID ==
[~2023-03-09] MED LIST changes: +HYDR-3713 PO; +IBUP-1022 PO
[2023-03-09 13:23] LABS: HEMATOCRIT 34.9 % (36.0-47.0); HEMOGLOBIN 11.2 g/dl (12.0-15.5); MEAN CORPUSCULAR HEMOGLOBIN 26.2 pg (27.0-33.0); MEAN CORPUSCULAR HGB CONC 32.1 g/dl (32.0-36.5); MEAN CORPUSCULAR VOLUME 81.7 fl (80.0-96.0); PLATELET COUNT, AUTOMATED 252 10^3/uL (150-450); RED BLOOD COUNT 4.27 10^6/uL (4.00-5.40); WHITE BLOOD COUNT 7.2 10^3/uL (4.0-10.0)
[2023-03-09 14:04] LABS: HIV 1&2 SCREEN NEGATIVE (NEGATIVE)
== END ==
LOC: M PLALAB 09:42
PROVIDERS: ATTEND Obstetrics & Gynecology
DX: Z36.89 Encounter for other specified antenatal screening (principal); Z3A.00 Weeks of gestation of pregnancy not specified

== ENCOUNTER → 2023-03-13 | Outpatient (REF) | payer OTHER, MEDICAID ==
[2023-03-13 15:37] LABS: GC DNA AMPLIFICATION NEGATIVE (NEGATIVE)
== END ==
LOC: M SFHCWAGY 12:54
PROVIDERS: ATTEND Obstetrics & Gynecology
DX: Z34.91 Encounter for supervision of normal pregnancy, unspecified, first trimester (principal)

== ENCOUNTER 2023-04-10 20:13 | Emergency (ER) | payer OTHER, MEDICAID ==
[2023-04-10 20:46] LABS: BASO % 0.3 % (0.0-1.0); EOS # 0.1 10^3/uL (0.0-0.5); EOS % 1.7 % (0.0-3.0); HEMATOCRIT 33.5 % (36.0-47.0); HEMOGLOBIN 10.9 g/dl (12.0-15.5); LYMPH # 2.2 10^3/uL (1.5-5.0); LYMPH % 31.7 % (24.0-44.0); MEAN CORPUSCULAR HEMOGLOBIN 26.1 pg (27.0-33.0); MEAN CORPUSCULAR HGB CONC 32.5 g/dl (32.0-36.5); MEAN CORPUSCULAR VOLUME 80.3 fl (80.0-96.0); MONO # 0.5 10^3/uL (0.0-0.8); MONO % 6.6 % (2.0-8.0); NEUTROPHILS # 4.1 10^3/uL (1.5-8.5); NEUTROPHILS % 59.4 % (36.0-66.0); PLATELET COUNT, AUTOMATED 248 10^3/uL (150-450); RED BLOOD COUNT 4.17 10^6/uL (4.00-5.40); WHITE BLOOD COUNT 6.9 10^3/uL (4.0-10.0)
[2023-04-10 20:56] LABS: INR 0.98; PROTHROMBIN TIME 13.2 SECONDS (12.5-14.5)
[2023-04-10 21:05] LABS: CK-MB VALUE MASS < 1.0 NG/ML (<3.6); LIPASE 24 U/L (12-53)
[2023-04-10 21:07] LABS: CPK CREATINE PHOSPHOKINASE 49 U/L (34-145); MB/CK RELATIVE INDEX 2.04 (< OR =4)
[2023-04-10 21:08] LABS: ALBUMIN 2.9 G/DL (3.2-5.2); ALKALINE PHOSPHATASE 82 U/L (46-116); ALT/SGPT 12 U/L (7.0-40); AST/SGOT 11 U/L (<34); BILIRUBIN,DIRECT < 0.1 MG/DL (<0.4); BILIRUBIN,TOTAL 0.3 MG/DL (0.3-1.2); BLOOD UREA NITROGEN 9 MG/DL (9-23); CALCIUM LEVEL 8.4 MG/DL (8.5-10.1); CARBON DIOXIDE LEVEL 21 MMOL/L (20-31); CHLORIDE LEVEL 106 MMOL/L (98-107); CREATININE FOR GFR 0.56 MG/DL (0.55-1.30); GLOMERULAR FILTRATION RATE > 60.0 (>60); GLUCOSE, FASTING 137 MG/DL (60-100); POTASSIUM SERUM 3.6 MMOL/L (3.5-5.1); SODIUM LEVEL 136 MMOL/L (136-145); TOTAL PROTEIN 6.5 G/DL (5.7-8.2)
[2023-04-10 22:25] LABS: CK-MB VALUE MASS < 1.0 NG/ML (<3.6)
[2023-04-10 22:26] LABS: CPK CREATINE PHOSPHOKINASE 46 U/L (34-145); MB/CK RELATIVE INDEX 2.17 (< OR =4)
[2023-04-10 23:00] VITALS: BP 138/78; TEMP 98.8; O2SAT 98
== END 2023-04-11 00:23 | disposition left against medical advice (07) ==
LOC: M ED 20:13
DX: Z53.21 Procedure and treatment not carried out due to patient leaving prior to being seen by health care provider (principal)

== ENCOUNTER → 2023-04-22 | Outpatient (CLI) | payer OTHER, MEDICAID | LOC: M WHC 13:21 | PROVIDERS: ATTEND Advanced Practice Midwife | DX: Z34.92 Encounter for supervision of normal pregnancy, unspecified, second trimester (principal); Z3A.23 23 weeks gestation of pregnancy ==

== ENCOUNTER → 2023-06-03 | Outpatient (CLI) | payer OTHER, MEDICAID ==
[2023-06-03 14:01] LABS: HEMATOCRIT 35.9 % (36.0-47.0); HEMOGLOBIN 11.2 g/dl (12.0-15.5); MEAN CORPUSCULAR HEMOGLOBIN 25.3 pg (27.0-33.0); MEAN CORPUSCULAR HGB CONC 31.2 g/dl (32.0-36.5); PLATELET COUNT, AUTOMATED 262 10^3/uL (150-450); RED BLOOD COUNT 4.43 10^6/uL (4.00-5.40); WHITE BLOOD COUNT 9.8 10^3/uL (4.0-10.0)
[2023-06-03 15:43] LABS: GC DNA AMPLIFICATION NEGATIVE (NEGATIVE)
== END ==
LOC: M PLALAB 09:38
PROVIDERS: ATTEND Specialist
DX: Z34.82 Encounter for supervision of other normal pregnancy, second trimester (principal)

== ENCOUNTER 2023-07-26 09:01 | Inpatient (IN) | payer OTHER, MEDICAID ==
[2023-07-26] VITALS (12 sets, daily range): BP systolic 118–195; BP diastolic 45–104; O2SAT 97–98
[~2023-07-26] VITALS: Ht 157.5 cm; Wt 106.2 kg
[2023-07-26] MEDS ORDERED: BENA25CA4 PO (09:36)
[2023-07-26] MEDS ORDERED: ACET-897 PO (09:36)
[2023-07-26] MEDS ORDERED: PEPC1TAB5 PO (09:36)
[2023-07-26] MEDS ORDERED: MULTTAB20 PO (09:36)
[2023-07-26] MEDS ORDERED: HOME MED LIST COMPLETE! XX SCH (09:55)
[2023-07-26] MEDS ORDERED: LACTATED RINGER'S 1000 ML IV STA (10:22)
[2023-07-26] MEDS ORDERED: LR 1,000 ML IV SCH (10:25)
[2023-07-26 11:08] LABS: HEMOGLOBIN 11.8 g/dl (12.0-15.5); MEAN CORPUSCULAR HEMOGLOBIN 25.4 pg (27.0-33.0); MEAN CORPUSCULAR HGB CONC 31.9 g/dl (32.0-36.5); MEAN CORPUSCULAR VOLUME 79.6 fl (80.0-96.0); PLATELET COUNT, AUTOMATED 240 10^3/uL (150-450); RED BLOOD COUNT 4.65 10^6/uL (4.00-5.40)
[2023-07-26 11:18] LABS: TOTAL PROTEIN,RANDOM URINE 15.2 MG/DL (0.0-14.0)
[2023-07-26 11:23] LABS: LDH LACTATE DEHYDROGENASE 339 U/L (120-246)
[2023-07-26 11:24] LABS: ALT/SGPT 10 U/L (7.0-40); AST/SGOT 31 U/L (<34); BILIRUBIN,TOTAL 0.2 MG/DL (0.3-1.2); CREATININE FOR GFR 0.52 MG/DL (0.55-1.30); CREATININE,RANDOM URINE 120.1 MG/DL; GLOMERULAR FILTRATION RATE > 60.0 (>60)
[2023-07-26 12:03] LABS: URIC ACID 6.7 MG/DL (3.1-7.8)
[2023-07-26] MEDS ORDERED: EPIDURAL/PCA KEYS XX PRN (12:05)
[2023-07-26] MEDS ORDERED: FENTANYL/ROPIVACAINE/NACL BAG 100 ML EPIDURAL SCH (12:05)
[2023-07-26] MEDS ORDERED: ONDANSETRON 4MG 2ML VIAL IV PRN (12:05)
[2023-07-26] MEDS ORDERED: ePHEDrine SULFATE 25 MG/5 ML(5MG/ML) SYRINGE IVP PRN (12:05)
[2023-07-26] MEDS ORDERED: diphenhydrAMINE 50MG/ML VIAL IV PRN (12:05)
[2023-07-26] MEDS ORDERED: LR 500 ML IV PRN (12:05)
[2023-07-26] MEDS ORDERED: NALOXONE INJ 0.4MG/1ML VIAL IV PRN (12:05)
[2023-07-26] MEDS ORDERED: OXYTOCIN 30UNITS IN 0.9% NaCl 500ML IV BAG As Ordered ONE (12:12)
[2023-07-26 12:26] LABS: CORD GAS ABE A -9.8; CORD GAS HCO3 A 22.7 MMOL/L; CORD GAS O2 SAT A < 15.0 %; CORD GAS PCO2 A 79.3 mmHg; CORD GAS PH A 7.075 UNITS; CORD GAS PO2 A > 700.0 mmHg; CORD GAS TCO2 A 25.2 MMOL/L
[2023-07-26 12:28] LABS: CORD GAS ABE V -8.9; CORD GAS HCO3 V 22.9 MMOL/L; CORD GAS O2 SAT V < 0.0 %; CORD GAS PCO2 V 75.1 mmHg; CORD GAS PH V 7.103 UNITS; CORD GAS PO2 V < 0.0 mmHg; CORD GAS TCO2 V 25.3 MMOL/L
[2023-07-26] MEDS ORDERED: OXYTOCIN DRIP 30 UNITS in IV 1 EA IV SCH (12:45)
[2023-07-26] MEDS ORDERED: ANUSOL HC CREAM 30GM TOP PRN (12:45)
[2023-07-26] MEDS ORDERED: ACETAMINOPHEN 500 MG TAB PO PRN (12:45)
[2023-07-26] MEDS ORDERED: DIBUCAINE 1% OINTMENT 30GM TOP PRN (12:45)
[2023-07-26] MEDS ORDERED: MOM 30ML SUSPENSION UDC PO PRN (12:45)
[2023-07-26] MEDS ORDERED: ACETAMINOPHEN TAB 650MG DOSE (2X325MG) PO PRN (12:45)
[2023-07-26] MEDS ORDERED: DOCUSATE SODIUM 100MG CAPSULE PO PRN (12:45)
[2023-07-26] MEDS ORDERED: RHOGAM 300MCG (1500IU) INJ IM SCH (12:45)
[2023-07-26] MEDS ORDERED: IBUPROFEN 600MG TAB PO PRN (12:45)
[2023-07-26] MEDS: IBUPROFEN 800 MG TAB PO PRN (14:40)
[2023-07-26] MEDS: CALCIUM CARBONATE 500 MG CHEW U/D PO PRN (20:01)
[2023-07-27] MEDS: CALCIUM CARBONATE 500 MG CHEW U/D PO PRN (00:03)
[2023-07-27 06:00] VITALS: BP 136/68; O2SAT 100
[2023-07-27] MEDS: PRENATAL VITAMINS CHEWABLE TABLET PO SCH (08:29)
[2023-07-27] MEDS ORDERED: FAMOTIDINE 20 MG TAB PO SCH (21:00)
[2023-07-28] MEDS: IBUPROFEN 800 MG TAB PO PRN (00:39)
[2023-07-28 06:00] VITALS: O2SAT 100
[2023-07-28] MEDS ORDERED: IBUP80TA PO (08:28)
[2023-07-28] MEDS: PRENATAL VITAMINS CHEWABLE TABLET PO SCH (08:55)
[2023-07-28] MEDS ORDERED: MEASLES,MUMPS,RUBELLA VACCINE INJ (MMR-II) SC.IMMUN ONE (09:00)
== END 2023-07-28 12:20 | disposition home or self-care (01) | DRG 807 ==
LOC: M LDO 09:01 → M LDI 11:45 → M OBS 16:05
PROVIDERS: ADMIT Obstetrics & Gynecology; ATTEND Obstetrics & Gynecology
PROC: 10E0XZZ Delivery of Products of Conception, External Approach (ICD-10-PCS; principal; 2023-07-26)
DX: O60.14X0 Preterm labor third trimester with preterm delivery third trimester, not applicable or unspecified (principal); Z37.0 Single live birth; Z3A.36 36 weeks gestation of pregnancy; Z87.891 Personal history of nicotine dependence; Z91.013 Allergy to seafood; O69.82X0 Labor and delivery complicated by other cord entanglement, without compression, not applicable or unspecified; O45.8X9 Other premature separation of placenta, unspecified trimester

== ENCOUNTER 2024-01-12 07:02 | Emergency (ER) | payer MEDICAID, OTHER ==
[~2024-01-12] VITALS: Ht 154.9 cm; Wt 107.5 kg
[~2024-01-12 07:02] MED LIST changes: +ACET-897 PO; +BENA25CA4 PO; +IBUP80TA PO; +MULTTAB20 PO; +PEPC1TAB5 PO
[2024-01-12] MEDS ORDERED: HOME MED LIST COMPLETE! XX SCH (09:40)
[2024-01-12 09:54] LABS: BASO % 0.3 % (0.0-1.0); EOS % 0.5 % (0.0-3.0); HEMOGLOBIN 11.9 g/dl (12.0-15.5); LYMPH # 1.7 10^3/uL (1.5-5.0); LYMPH % 26.4 % (24.0-44.0); MEAN CORPUSCULAR HEMOGLOBIN 24.9 pg (27.0-33.0); MEAN CORPUSCULAR HGB CONC 31.3 g/dl (32.0-36.5); MEAN CORPUSCULAR VOLUME 79.5 fl (80.0-96.0); MONO # 0.4 10^3/uL (0.0-0.8); MONO % 6.6 % (2.0-8.0); NEUTROPHILS # 4.3 10^3/uL (1.5-8.5); PLATELET COUNT, AUTOMATED 279 10^3/uL (150-450); RED BLOOD COUNT 4.78 10^6/uL (4.00-5.40); WHITE BLOOD COUNT 6.5 10^3/uL (4.0-10.0)
[2024-01-12] MEDS ORDERED: ISOVUE-370 76% 100ML VIAL As Ordered ONE (10:03)
[2024-01-12 10:17] LABS: LIPASE 23 U/L (12-53)
[2024-01-12 10:20] LABS: HCG, SERUM QUALITATIVE NEGATIVE (NEGATIVE)
[2024-01-12 10:42] LABS: ALKALINE PHOSPHATASE 91 U/L (46-116); ALT/SGPT 14 U/L (7.0-40); AST/SGOT 15 U/L (<34); BILIRUBIN,DIRECT 0.2 MG/DL (<0.4); BILIRUBIN,TOTAL 0.5 MG/DL (0.3-1.2); BLOOD UREA NITROGEN 10 MG/DL (9-23); CALCIUM LEVEL 9.4 MG/DL (8.5-10.1); CARBON DIOXIDE LEVEL 27 MMOL/L (20-31); CHLORIDE LEVEL 104 MMOL/L (98-107); CREATININE FOR GFR 0.69 MG/DL (0.55-1.30); GLOMERULAR FILTRATION RATE > 60.0 (>60); GLUCOSE, FASTING 106 MG/DL (60-100); POTASSIUM SERUM 4.5 MMOL/L (3.5-5.1); SODIUM LEVEL 137 MMOL/L (136-145); TOTAL PROTEIN 7.4 G/DL (5.7-8.2)
[2024-01-12 11:35] VITALS: BP 117/60; TEMP 98.1; O2SAT 97
== END 2024-01-12 11:37 | disposition home or self-care (01) ==
LOC: M ED 07:02
DX: R10.9 Unspecified abdominal pain (principal); J45.909 Unspecified asthma, uncomplicated; F41.9 Anxiety disorder, unspecified; F32.A Depression, unspecified; F10.10 Alcohol abuse, uncomplicated; Z87.891 Personal history of nicotine dependence; Z91.013 Allergy to seafood; Z91.048 Other nonmedicinal substance allergy status
CPT/HCPCS: 36415; 74177; 80048; 80076; 81001; 83690; 84703; 85025; 99284; Q9967

== ENCOUNTER → 2024-07-12 | Outpatient (REF) | payer MEDICAID, OTHER ==
[2024-07-12 19:10] LABS: BLOOD UREA NITROGEN 13 MG/DL (9-23); CALCIUM LEVEL 9.1 MG/DL (8.5-10.1); CARBON DIOXIDE LEVEL 25 MMOL/L (20-31); CHLORIDE LEVEL 107 MMOL/L (98-107); CHOLESTEROL LEVEL 179 MG/DL (<200); CHOLESTEROL RISK RATIO 4.72 (<5); CREATININE FOR GFR 0.53 MG/DL (0.55-1.30); GLOMERULAR FILTRATION RATE > 60.0 (>60); GLUCOSE, FASTING 92 MG/DL (60-100); HDL CHOLESTEROL 37.9 MG/DL (>40); LDL CHOLESTEROL 126.1 MG/DL (<100); NON-HDL-C 141.1 MG/DL; POTASSIUM SERUM 4.2 MMOL/L (3.5-5.1); SODIUM LEVEL 138 MMOL/L (136-145); TRIGLYCERIDES LEVEL 75 MG/DL (<150)
[2024-07-12 19:37] LABS: HEMOGLOBIN A1c 5.3 % (4.0-6.0)
== END ==
LOC: M LAB REF 16:37
PROVIDERS: ATTEND Physician Assistant
DX: Z86.32 Personal history of gestational diabetes (principal); E66.9 Obesity, unspecified; Z68.41 Body mass index [BMI] 40.0-44.9, adult